=== PATIENT | male | born 1935 | race African-American/Black ===

== ENCOUNTER 2018-12-27 15:15 | Emergency (ER) | payer OTHER ==
[~2018-12-27] VITALS: Ht 182.9 cm; Wt 110.0 kg
[2018-12-27] MEDS ORDERED: ACETAMINOPHEN 500MG TABLET PO ONE (17:00)
[2018-12-27] MEDS ORDERED: IBUPROFEN 800MG TABLET PO ONE (17:00)
[2018-12-27 17:52] VITALS: BP 119/72
== END 2018-12-27 18:29 | disposition home or self-care (01) ==
LOC: ER 15:15
DX: M62.830 Muscle spasm of back (principal); M62.838 Other muscle spasm; I10 Essential (primary) hypertension; V49.50XA Passenger injured in collision with unspecified motor vehicles in traffic accident, initial encounter; Y93.9 Activity, unspecified; Y92.410 Unspecified street and highway as the place of occurrence of the external cause
CPT/HCPCS: 71046; 72040; 99283